=== PATIENT | male | born 1965 | race Caucasian/White ===

== ENCOUNTER 2016-09-13 07:07 | Day surgery (SDC) | payer MEDICAID ==
[2016-09-13] MEDS ORDERED: LR 1,000 ML IV ONE (07:41)
[2016-09-13] MEDS ORDERED: LIDOCAINE 1% 5 ML SDV ID PRN (07:41)
[2016-09-13] MEDS ORDERED: PROPOFOL/EMULSION 500 MG/50 ML BOTTLE IV ONE (09:00)
[2016-09-13] MEDS ORDERED: MIDAZOLAM 2 MG/2 ML VIAL ONE (09:00)
--- NOTE | 2016-09-18 10:17 | GPN ---
[f rep st] PROCEDURE NOTE DATE OF PROCEDURE: 09/13/2016 PROCEDURE: Esophagogastroduodenoscopy with biopsy, dilation. INDICATION: The patient is a 51-year-old male who presents for evaluation of dysphagia as well as heartburn. CONSENT: Risks, benefits, and alternatives of the procedure were discussed in great detail with the patient. Risk of infection, bleeding, perforation, and sedation were discussed. All questions answered. Informed consent was obtained. MEDICATIONS: Propofol. Please see Anesthesia details. ESTIMATED BLOOD LOSS: Insignificant. ESOPHAGOGASTROSCOPY EXAMINATION: The Olympus upper endoscope was introduced in the mouth and advanced to the esophagus. The proximal and mid esophagus were normal in appearance. Biopsies were also taken in the mid esophagus i to rule out eosinophilic esophagitis. The distal esophagus had an irregular Z-line, and biopsies were taken. There was also a mild stricture at the GE junction which was dilated with a 12-15 and 15-18 mm balloon. The stomach was entered and closely examined, including retroflexed views of the angularis, cardia, and fundus. The patient has a large hiatal hernia. The mucosa in the antrum and body was erythematous in a patchy distribution, and biopsies were taken. The duodenal bulb and 2nd potion of the duodenum are normal in appearance. IMPRESSION: 1. Esophageal stricture. Status post dilation 2. Irregular Z-line. Biopsies taken. 3. Biopsy taken of mid esophagus to rule out eosinophilic esophagitis. 4. Gastritis, status post biopsy. 5. Hiatal hernia. RECOMMENDATIONS: 1. PPI therapy twice a day for 6 weeks, then daily. 2. Await biopsy results. 3. Anti-reflux lifestyle. /[id number]/MODL MTDD
== END 2016-09-13 10:40 | disposition home or self-care (01) ==
LOC: FSGY 07:07
PROVIDERS: ATTEND Internal Medicine Gastroenterology
PROC: 0DB68ZX Excision of Stomach, Via Natural or Artificial Opening Endoscopic, Diagnostic (ICD-10-PCS; principal; 2016-09-13 08:30)
PROC: 0DB38ZX Excision of Lower Esophagus, Via Natural or Artificial Opening Endoscopic, Diagnostic (ICD-10-PCS; principal; 2016-09-13 08:30)
DX: K22.2 Esophageal obstruction (principal); K44.9 Diaphragmatic hernia without obstruction or gangrene; K29.70 Gastritis, unspecified, without bleeding; K21.9 Gastro-esophageal reflux disease without esophagitis; C14.0 Malignant neoplasm of pharynx, unspecified; J44.9 Chronic obstructive pulmonary disease, unspecified
CPT/HCPCS: 43239; 43249; C1726; J2250; J2704